=== PATIENT | female | born 1995 | race Caucasian/White ===

== ENCOUNTER 2016-03-16 14:20 | Emergency (ER) | payer BC ==
--- NOTE | 2016-03-16 14:36 | ED Physician Documentation ---
Sore Throat/Dental Pain - HISTORIAN Historian: patient - HPI Chief Complaint: Sore Throat Onset: days ago (2) Associated Symptoms: chills, sore throat. denies: fever Further Comments: yes (Several day hx of ST, nonproductive cough, head congestion. No one else at home ill.) - ROS CONST: no problems CVS/RESP: denies: chest pain, shortness of breath - PAST HX Past History: none Allergies/Adverse Reactions: Allergies Allergy/AdvReac Type Severity Reaction Status Date / Time No Known Drug Allergies Allergy Verified 03/16/16 14:33 Home Medications: Ambulatory Orders Medication Instructions Recorded NK [NK] 03/16/16 - SOCIAL HX Smoking History: less than 1 pack/day Alcohol Use: none Drug Use: none - FAMILY HX Family History: No - VITAL SIGNS Vital Signs: Vital Signs Temp Pulse Resp BP Pulse Ox 118/72 12/18/15 21:49 - REVIEWED ASSESSMENTS Nursing Assessment Reviewed: Yes Vitals Reviewed: Yes ED Results Lab/Radiology - Orders Orders: ED Orders Category Date Time Status Rapid Strep [GRP A STREP SCREEN] Routine Lab 03/16/16 Ordered Sore throat Physical Exam - EXAM General Appearance: alert, mild distress Head/Neck: head nml inspection, trachea midline, cervical lymphadenopathy Mouth/Throat: lips nml, gums nml, voice nml, no air way problems, no thrush, pharyngeal erythema Ear/Nose: nml inspection, TM erythema Respiratory: no resp. distress, breath sounds nml. No: wheezes, rales, rhonchi CVS: reg. rate & rhythm, heart sounds nml. No: murmur Abdomen: soft, no organomegaly Extremities: non-tender Skin: warm/dry, normal color Neuro/Psych: oriented x3, mood/affect nml Discharge Clincal Impression: Pharyngitis Additional Instructions: Drink a lot of fluids, gargle with salt water. If symptoms are not improving in three days to be seen by your primary care provider. Home Medications: Ambulatory Orders NK [NK] 03/16/16 Condition: Stable Disposition: HOME, SELF-CARE Decision to Admit: NO Date of Decison to Admit: 03/16/16 Decision Time: 14:48
[2016-03-16 14:38] VITALS: BP 118/57
== END 2016-03-16 14:57 | disposition home or self-care (01) ==
LOC: ED 14:20
DX: J02.9 Acute pharyngitis, unspecified (principal)
CPT/HCPCS: 87070; 87880; 99282; 99283

== ENCOUNTER 2017-12-11 03:44 | Emergency (ER) | payer BC, OTHER ==
[2017-12-11] MEDS: 0.9 % SODIUM CHLORIDE 1,000 ML IV ONE ×2 (03:58→05:15)
[2017-12-11] MEDS: ONDANSETRON HCL/PF 4 MG/ 2ML VIAL IVP ONE (04:00)
--- NOTE | 2017-12-11 04:02 | ED Physician Documentation ---
General Adult - HISTORIAN Historian: patient - HPI Stated Complaint: nausea and vomiting Chief Complaint: General Adult Additional Information: nausea and vomiting began last evening. Thinks she may be dehydrated. No diarrhea or fever. Says she has not had a bowel movement for 3-4 weeks. Saw her primary, Dr. Espinoza, two weeks ago and he had her take an unknown white pill, but that did not help. No unusual food intake. No other modifying factors or associated signs. - ROS CONST: denies: fever - PAST HX Past History: none Surgeries/Procedures: other (FX arm) Allergies/Adverse Reactions: Allergies Allergy/AdvReac Type Severity Reaction Status Date / Time No Known Drug Allergies Allergy Verified 12/11/17 04:05 Home Medications: Ambulatory Orders Medication Instructions Recorded Azithromycin [Zithromax] 250 mg PO DAILY #6 tablet 12/11/17 Docusate Sodium [Colace] 100 mg PO BID #60 12/11/17 - SOCIAL HX Smoking History: non-smoker - FAMILY HX Family History: Yes (GM and GF of colon cancer) - VITAL SIGNS Vital Signs: Vital Signs Temp Pulse Resp BP Pulse Ox 118/57 03/16/16 14:58 - REVIEWED ASSESSMENTS Nursing Assessment Reviewed: Yes Vitals Reviewed: Yes Progress - Progress Progress: Report Submission Date: Dec 11, 2017 4:40:00 AM CDT Patient Study Name: CLEMENTINA WAYNE Date: Dec 11, 2017 4:07:56 AM CDT Modality Type: DX Gender: F Description: ABDOMEN : 89 Institution: [facility] Physician: ASHKAN MASSEY - ER Abdomen series with single view chest History: Left lower abdominal pain and vomiting Findings: Minimal hazy right infrahilar infiltrate is present. The lungs are hyperinflated. The left lung is clear. Heart size is normal. A moderate to large amount of colorectal stool is present without bowel obstruction or free air. No abnormal calcifications are observed. Impression: 1. Hazy right infrahilar infiltrate. 2. Constipation. Electronically signed on Dec 11, 2017 4:40:00 AM CDT by: Ilan Brown ED Results Lab/Radiology - Orders Orders: ED Orders Category Date Time Status Place IV Lock 1T Care 12/11/17 03:48 Active ABDOMEN WITH PA CHEST [ABD SERIES PA CHEST] [RAD] Stat Exams 12/11/17 Ordered CBC/PLATELET/DIFF Routine Lab 12/11/17 03:57 Received CMP Routine Lab 12/11/17 03:57 Received DRUG SCREEN 8,URINE Stat Lab 12/11/17 Ordered URINALYSIS Routine Lab 12/11/17 Ordered URINE HCG Stat Lab 12/11/17 03:48 Ordered 0.9 % Sodium Chloride [Normal Saline] 1,000 ml Med 12/11/17 03:48 Active IV Q1H Ondansetron HCl/Pf [Zofran 4 mg/2 ml] Med 12/11/17 03:48 Discontinued 4 mg IVP NOW ONE General Adult Physical Exam - PHYSICAL EXAM GENERAL APPEARANCE: thin (anxious) EENT: eye inspection normal, ENT inspection normal, pharynx normal NECK: normal inspection, supple RESPIRATORY: no resp distress, breath sounds normal CVS: reg rate & rhythm, heart sounds normal, no murmur ABDOMEN: soft, no organomegaly, normal bowel sounds, no distension BACK: normal inspection, no CVA tenderness, other (no vertebral tenderness) SKIN: warm/dry, normal color EXTREMITIES: normal range of motion (gait and stance), no evidence of injury NEURO: CN's nml as tested, motor nml, sensation nml Discharge Clincal Impression: Dehydration Pneumonia Qualifiers: Pneumonia type: due to unspecified organism Laterality: right Lung location: lower lobe of lung Qualified Code(s): J18.1 - Lobar pneumonia, unspecified organism Constipation Qualifiers: Constipation type: unspecified constipation type Qualified Code(s): K59.00 - Constipation, unspecified Prescriptions: Azithromycin [Zithromax] 250 mg PO DAILY #6 tablet Docusate Sodium [Colace] 100 mg PO BID #60 Referrals: Primary Doctor,No [Primary Care Provider] - 2 Days Condition: Fair Disposition: 01 HOME, SELF-CARE Decision to Admit: NO Decision Time: 06:00
[2017-12-11 04:32] LABS: eGFR (Non-African) > 60
[2017-12-11 04:33] LABS: BASOPHILS % 0.7 (0.0-1.5); EOSINOPHILS % 2.3 % (0.0-6.8); MEAN CORPUSCULAR HEMOGLOBIN 29.4 pg (28.0-34.0); MONOCYTES % 7.8 % (0.0-11.0)
[2017-12-11 04:34] LABS: NEUTROPHILS # 5.3 # k/uL (1.4-7.7)
[2017-12-11] MEDS: cefTRIAXone SODIUM 1 GM in 0.9 % SODIUM CHLORIDE 100 ML IV ONE (05:16)
[2017-12-11] MEDS: 0.9 % SODIUM CHLORIDE 100 ML IV ONE (05:17)
[2017-12-11] MEDS: cefTRIAXone SODIUM 1 GM VIAL ONE (05:17)
[2017-12-11 06:12] VITALS: BP 117/69
--- NOTE | 2017-12-11 06:23 | Diagnostic Imaging Report ---
ASHKAN MASSEY [facility] [address] [facility] [address] [place] [address]. [id number] Report Submission Date: Dec 11, 2017 4:40:00 AM CDT Patient Study Name: CLEMENTINA WAYNE Date: Dec 11, 2017 4:07:56 AM CDT Modality Type: DX Gender: F Description: ABDOMEN : 89 Institution: [facility] Physician: ASHKAN MASSEY Abdomen series with single view chest History: Left lower abdominal pain and vomiting Findings: Minimal hazy right infrahilar infiltrate is present. The lungs are hyperinflated. The left lung is clear. Heart size is normal. A moderate to large amount of colorectal stool is present without bowel obstruction or free air. No abnormal calcifications are observed. Impression: 1. Hazy right infrahilar infiltrate. 2. Constipation. Electronically signed on Dec 11, 2017 4:40:00 AM CDT by: Ilan CIFUENTES
[2017-12-11 13:12] LABS: CANNABINOIDS NEGATIVE ng/mL (< 50); METHYLENEDIOXYMETHAMPHETAMINE NEGATIVE ng/mL (<500)
[2017-12-11 13:13] LABS: APPEARANCE,URINE CLEAR (CLEAR); COLOR,URINE YELLOW (YELLOW); OCCULT BLOOD,URINE TRACE-INTACT (NEGATIVE); PH URINE 5.5 (5.0 - 8.0); URINE HCG NEGATIVE (NEGATIVE); UROBILINOGEN URINE 0.2 Eu (0.2-1.0)
== END 2017-12-11 06:10 | disposition home or self-care (01) ==
LOC: ED 03:44
DX: E86.0 Dehydration (principal); J18.1 Lobar pneumonia, unspecified organism; K59.00 Constipation, unspecified
CPT/HCPCS: 74022; 80053; 80377; 81002; 81025; 85025; 87040; J0696; J2405; J7030; 96360; 96361; 96365; 96375; 99284; G0481; S1016

== ENCOUNTER 2018-03-21 11:48 | Emergency (ER) | payer OTHER ==
--- NOTE | 2018-03-21 11:57 | ED Physician Documentation ---
General Adult - HISTORIAN Historian: patient - HPI Stated Complaint: sinus pain and pressure - cough Chief Complaint: Allergies Onset: days ago (7) Timing: still present Severity: mild Further Comments: yes (She states last and Friday she had a low grade fever - she is not sure of the measurement. She states she has had increasing sinus pressure and cough (productive) she has tried OTC meds with no relief. She has no sick contacts that she is aware of at this time.) - ROS CONST: fever EYES/ENT: sore throat, nasal congestion CVS/RESP: cough. denies: chest pain, shortness of breath GI/: denies: abdominal pain, problems urinating, vomiting, nausea, diarrhea MS/SKIN/LYMPH: none NEURO/PSYCH: headache - PAST HX Past History: none Other History: none Surgeries/Procedures: none Immunizations: UTD Allergies/Adverse Reactions: Allergies Allergy/AdvReac Type Severity Reaction Status Date / Time No Known Drug Allergies Allergy Verified 03/21/18 12:27 - SOCIAL HX Smoking History: non-smoker Alcohol Use: none Drug Use: none - FAMILY HX Family History: No - VITAL SIGNS Vital Signs: Vital Signs Temp Pulse Resp BP Pulse Ox 117/69 12/11/17 06:10 - REVIEWED ASSESSMENTS Nursing Assessment Reviewed: Yes Vitals Reviewed: Yes General Adult Physical Exam - PHYSICAL EXAM GENERAL APPEARANCE: no distress EENT: no signs of dehydration, pharyngeal erythema, TM erythema, other (sinus pain frontal bilaterally ) NECK: normal inspection RESPIRATORY: no resp distress, chest non-tender, breath sounds normal CVS: reg rate & rhythm, heart sounds normal ABDOMEN: soft, normal bowel sounds, no distension SKIN: warm/dry, normal color EXTREMITIES: non-tender NEURO: oriented X3 Discharge Clincal Impression: Sinusitis Qualifiers: Sinusitis location: frontal Chronicity: acute Recurrence: non-recurrent Qualified Code(s): J01.10 - Acute frontal sinusitis, unspecified Referrals: Demarcus Espinoza DO [Primary Care Provider] - 2 Days Comments: 1. Augmentin 875/125 mg take 1 by mouth BID x 10 days 2. Medrol dose pack - as directed 3. Tessalon Pearls 100 mg take 1 by mouth every 8 hours as needed for cough 4. Continue OTC meds as needed and as directed for symptom relief 5. See PCP in 2-4 days if no improvement 6. Return to ER for any concerns Condition: Stable Disposition: 01 HOME, SELF-CARE Decision to Admit: NO Date of Decison to Admit: 03/21/18 Decision Time: 12:28
[2018-03-21 12:05] VITALS: BP 108/64
== END 2018-03-21 12:30 | disposition home or self-care (01) ==
LOC: ED 11:48
DX: J01.10 Acute frontal sinusitis, unspecified (principal)
CPT/HCPCS: 99281; 99282

== ENCOUNTER 2018-06-24 23:22 | Emergency (ER) | payer OTHER ==
--- NOTE | 2018-06-24 23:27 | ED Physician Documentation ---
Headache - HISTORIAN Historian: patient - HPI Stated Complaint: headache x 2 days (week illness started) Chief Complaint: Headache Onset: days ago (2) Timing: gradual New Gradual Onset: Yes Exposure To: none Severity: moderate Quality: similar to previous (but she hasnt had a migraine this bad in a year ) Associated Symptoms: fever, sensitivity to light, nausea. denies: problems with vision, vomiting, speech problems, numbness, dizziness Preceding Symptoms: other (none ) Exacerbated By: light, noise, movement, position Further Comments: yes (She reports "started feeling bad" about one week ago she states she then 2 days ago started to have increased headache symtpoms behind both eyes and a fever this evening of 100.5 - she last took OTC meds at 1300 and had no relief. She has nausea. No vomiting. She denies any injury to her head. She states She has had migraines in the past although she recalls the last one "this bad was a year ago" . She has no rash. NO other complaints.) Last known Well Code/Unknown Code: Unknown - ROS NEURO/PSYCH: denies: confusion, anxiety, depression, fainting EYES/ENT: denies: sore throat, difficulty swallowing, sinus pain, drainage CVS/RESP: none GI/: denies: abdominal pain, diarrhea, problems urinating MS/SKIN/LYMPH: denies: muscle aches, back pain, rash, skin lesions, swollen glands - PAST HX Medical History: migraines Immunizations: UTD Allergies/Adverse Reactions: Allergies Allergy/AdvReac Type Severity Reaction Status Date / Time No Known Drug Allergies Allergy Verified 06/24/18 23:37 Home Medications: Ambulatory Orders Medication Instructions Recorded NK 06/24/18 - SOCIAL HX Smoking History: non-smoker Alcohol Use: none Drug Use: none - Family HX Family History: none - VITAL SIGNS Vital Signs: Vital Signs Temp Pulse Resp BP Pulse Ox 100.2 F H 67 14 125/84 99 06/24/18 23:22 06/24/18 23:22 06/24/18 23:22 06/24/18 23:22 06/24/18 23:22 - REVIEWED ASSESSMENTS Nursing Assessment Reviewed: Yes Vitals Reviewed: Yes Progress - Progress Progress: 0041: Pt on her cell phone - discussed results she states she has some improvement - discussed plan she is agreeable DG ED Results Lab/Radiology - Lab Results Lab Results: Lab Results 06/24/18 06/24/18 23:50 23:50 WBC 4.90 K/ul K/ul (4.00-12.00) RBC 5.01 M/ul M/ul (3.90-5.20) Hgb 14.8 g/dL g/dL (11.5-16.0) Hct 43.4 % % (34.5-46.5) MCV 86.0 fl fl (80.0-100.0) MCH 29.5 pg pg (28.0-34.0) MCHC 34.1 g/dL g/dL (30.0-36.0) RDW 12.5 % % (11.3-14.3) Plt Count 183 K/mm3 K/mm3 (130-400) Neut % (Auto) 42.8 % % (39.0-79.0) Lymph % (Auto) 35.5 % % (16.0-50.0) [place] % (Auto) 17.4 % H % (0.0-11.0) Eos % (Auto) 2.6 % % (0.0-6.8) Baso % (Auto) 1.7 % H % (0.0-1.5) Neut # (Auto) 2.1 # k/uL # k/uL (1.4-7.7) Lymph # (Auto) 1.7 # k/uL # k/uL (0.6-4.0) Erath # (Auto) 0.9 # k/uL # k/uL (0.0-0.9) Eos # (Auto) 0.1 # k/uL # k/uL (0.0-0.6) Baso # (Auto) 0.1 # k/uL # k/uL (0.0-0.5) Sodium 137 mmol/L mmol/L (137-145) Potassium 3.6 mmol/L mmol/L (3.5-5.1) Chloride 103 mmol/L mmol/L (98-107) Carbon Dioxide 27 mmol/L mmol/L (22-30) BUN 8 mg/dL mg/dL (7-17) Creatinine 0.62 mg/dL mg/dL (0.52-1.04) Estimated Creat Clear 135 Est GFR ( Amer) > 60 (60 - ) Est GFR (Non-Af Amer) > 60 (60 - ) Glucose 90 mg/dL mg/dL (74-106) Calcium 9.6 mg/dL mg/dL (8.4-10.2) Total Bilirubin 0.6 mg/dL mg/dL (0.2-1.3) AST 31 U/L U/L (15-46) ALT 19 U/L U/L (0-35) Alkaline Phosphatase 69 U/L U/L (38-126) Total Protein 7.8 g/dL g/dL (6.3-8.2) Albumin 4.3 g/dL g/dL (3.5-5.0) - Radiology Radiology Impressions: CT brain noncontrast CLINICAL HISTORY: frontal TAYLOR x3 days, no known trauma (Hx) / ITS.REASON HEadache TECHNIQUE: 5 mm contiguous axial images of the brain, noncontrast. FINDINGS: There is no evidence of intracranial mass effect, hemorrhage, or acute hydrocephalus. The lateral ventricles are symmetrical and the 4th ventricle is midline without shift. No acute brain parenchymal changes or extra-axial fluid collections are identified. The posterior fossa contents are within normal limits. The calvarium is intact. The visualized sinuses and mastoid air cells are clear. IMPRESSION: No acute intracranial process. Electronically signed on June 25, 2018 12:15:02 AM CDT by: Roger Williamson - Orders Orders: ED Orders Category Date Time Status IV Started NOW Care 06/24/18 23:[address] BRAIN W/O CONTRAST Stat Exams 06/24/18 Completed CBC/PLATELET/DIFF Stat Lab 06/24/18 23:50 Completed CMP Stat Lab 06/24/18 23:50 Completed UA W/MICRO IF INDICATED Routine Lab 06/24/18 23:34 Ordered URINE HCG Stat Lab 06/24/18 Ordered 0.9 % Sodium Chloride [Normal Saline] 1,000 ml Med 06/24/18 23:50 Active IV NOW Dexamethasone Sodium Phosphate [Decadron] Med 06/25/18 00:37 Once 2 mg IV NOW ONE Ketorolac Tromethamine [Toradol] Med 06/24/18 23:51 Discontinued 30 mg IV NOW ONE Ondansetron HCl/Pf [Zofran] Med 06/25/18 00:12 Discontinued 4 mg IVP NOW ONE Headache Physical Exam - EXAM General Appearance: alert, mild distress EENT: no facial swelling, eyes nml inspection, PERRL, pain over sinuses Neck: normal inspection Respiratory: no resp distress, chest non-tender, breath sounds normal CVS: reg. rate & rhythm, heart sounds nml Abdomen: non-tender Skin: color nml, no rash Extremitites: non-tender, normal range of motion, no evidence of injury, no chrissy a - NEURO/PSYCH Higher Functions: alert, oriented x3, nml speech, mood/affect nml Cranial: nml as tested Cerebellar: nml as tested Sensorimotor: motor nml Discharge Clincal Impression: Migraine Qualifiers: Migraine type: unspecified Status migrainosus presence: without status migrainosus Intractability: not intractable Qualified Code(s): G43.909 - Migraine, unspecified, not intractable, without status migrainosus Referrals: Primary Doctor,No [Primary Care Provider] - 2 Days Comments: 1. Tramadol 50 mg take 1 by mouth every 8 hours as needed for headache 2. Zofran 4 mg take 1 by mouth every 8 hours as needed for nausea 3. Increase fluids 4. See PCP in 2-4 days and discuss migraine options 5. Return to ER for any increasing symptoms Condition: Stable Disposition: 01 HOME, SELF-CARE Decision to Admit: NO Date of Decison to Admit: 06/25/18 Decision Time: 00:45
[2018-06-25] MEDS: 0.9 % SODIUM CHLORIDE 1,000 ML IV ONE (00:05)
[2018-06-25] MEDS: KETOROLAC TROMETHAMINE 30 MG/1ML VIAL IV ONE (00:10)
[2018-06-25 00:13] LABS: BASOPHILS % 1.7 % (0.0-1.5); EOSINOPHILS % 2.6 % (0.0-6.8); MEAN CORPUSCULAR HEMOGLOBIN 29.5 pg (28.0-34.0); MONOCYTES % 17.4 % (0.0-11.0); NEUTROPHILS # 2.1 # k/uL (1.4-7.7)
[2018-06-25] MEDS: ONDANSETRON HCL/PF 4 MG/ 2ML VIAL IVP ONE (00:15)
[2018-06-25 00:18] LABS: eGFR (Non-African) > 60
--- NOTE | 2018-06-25 00:21 | Diagnostic Imaging Report ---
BRIDGET RICHMOND [facility] [address] Count In[facility] [address] [place], [place]. [address] Report Submission Date: June 25, 2018 12:15:02 AM CDT Patient Study Name: CLEMENTINA WAYNE Date: June 24, 2018 11:56:35 PM CDT Modality Type: CT\SR Gender: F Description: CT BRAIN W/O CONTRAST : 89 Institution: [facility] Physician: BRIDGET RICHMOND CT brain noncontrast CLINICAL HISTORY: frontal TAYLOR x3 days, no known trauma (Hx) / ITS.REASON HEadache TECHNIQUE: 5 mm contiguous axial images of the brain, noncontrast. FINDINGS: There is no evidence of intracranial mass effect, hemorrhage, or acute hydrocephalus. The lateral ventricles are symmetrical and the 4th ventricle is midline without shift. No acute brain parenchymal changes or extra-axial fluid collections are identified. The posterior fossa contents are within normal limits. The calvarium is intact. The visualized sinuses and mastoid air cells are clear. IMPRESSION: No acute intracranial process. Electronically signed on June 25, 2018 12:15:02 AM CDT by: Roger CIFUENTES
[2018-06-25] MEDS: DEXAMETHASONE SOD PHOS 4 MG/ML VIAL IV ONE (00:46)
[2018-06-25 01:30] VITALS: BP 128/64
[2018-06-25 06:22] LABS: OCCULT BLOOD,URINE TRACE-INTACT (NEGATIVE); PH URINE 6.5 (5.0 - 8.0)
== END 2018-06-25 01:05 | disposition home or self-care (01) ==
LOC: ED 23:22
DX: G43.909 Migraine, unspecified, not intractable, without status migrainosus (principal)
CPT/HCPCS: 36415; 70450; 80053; 81002; 81025; 85025; 96361; 96374; 96375; 99283; 99284; J1100; J1885; J2405; J7030; S1016

== ENCOUNTER 2018-09-28 23:52 | Emergency (ER) | payer OTHER ==
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
[2018-09-29 01:38] VITALS: BP 117/72
== END 2018-09-29 00:30 | disposition home or self-care (01) ==
LOC: ED 23:52
DX: F41.9 Anxiety disorder, unspecified (principal)
CPT/HCPCS: 99281; 99282

== ENCOUNTER 2019-01-12 17:25 | Emergency (ER) | payer OTHER ==
[2019-01-12] MEDS ORDERED: ONDANSETRON HCL/PF 4 MG/ 2ML VIAL IVP ONE (17:54)
[2019-01-12] MEDS ORDERED: 0.9 % SODIUM CHLORIDE 1,000 ML IV ONE (17:54)
--- NOTE | 2019-01-12 17:59 | ED Physician Documentation ---
Nausea/Vomiting/Diarrhea - HISTORIAN Historian: patient - HPI Stated Complaint: abd pain Chief Complaint: Nausea,Vomiting,Diarrhea Additional Information: 23 year old female presents with c/o n/v/d. She returned from vacation in [facility] on the , she had been there since the and started feeling ill after eating some shrimp; states that 4 other people that went also got sick but are better now. She still has nausea and epigastric discomfort. She last vomited on the and last episode of diarrhea was 5 days ago. She states that she ate some pizza today and the nausea and epigastric pain worsened (discussed a bland diet). She states last menses was last month- she is on BCP and is getting ready to start. Onset: days ago Duration: waxing, waning Timing: gradual onset Context: bad food (shrimp while in [place]) Severity: moderate - Associated Symptoms Vomiting: other (stopped on the ) Diarrhea: other (stopped 5 days ago) Abdominal Pain: epigastric - ROS CONST: recent illness CVS/RESP: denies: chest pain, shortness of breath GI/: none EYES/ENT: none MS/SKIN/LYMPH: denies: rash, swollen glands NEURO/PSYCH: none - PAST HX Past History: none Surgeries/Procedures: other (left arm) Immunizations: UTD Allergies/Adverse Reactions: Allergies Allergy/AdvReac Type Severity Reaction Status Date / Time No Known Drug Allergies Allergy Verified 01/12/19 17:52 Home Medications: Ambulatory Orders Medication Instructions Recorded Norgestimate-Ethinyl Estradiol 1 tab PO DAILY 09/29/18 [Sprintec 28 Day Tablet] Ondansetron HCl Rapdis [Zofran Odt] 4 mg PO Q6H PRN #10 tab 01/12/19 metroNIDAZOLE [Flagyl] 500 mg PO Q6H #28 tablet 01/12/19 - SOCIAL HX Smoking History: non-smoker, other (quit 1 month ago) Alcohol Use: none Drug Use: none - FAMILY HX Family History: none - VITAL SIGNS Vital Signs: Vital Signs Temp Pulse Resp BP Pulse Ox 98.5 F 55 L 16 103/61 99 01/12/19 17:35 01/12/19 18:47 01/12/19 18:47 01/12/19 18:47 01/12/19 18:47 - REVIEWED ASSESSMENTS Nursing Assessment Reviewed: Yes Vitals Reviewed: Yes Progress - Progress Progress: 18:40 patient feeling better after IV fluids; discussed foods high in potassium or an OTC potassium supplement for couple of days; discussed following a BRAT diet until nausea subsides; drink > 64oz of water daily; follow up with PCP next week ED Results Lab/Radiology - Lab Results Lab Results: Lab Results 01/12/19 01/12/19 01/12/19 18:13 18:13 18:13 WBC 11.20 K/ul K/ul (4.00-12.00) RBC 4.39 M/ul M/ul (3.90-5.20) Hgb 13.5 g/dL g/dL (11.5-16.0) Hct 38.8 % % (34.5-46.5) MCV 88.0 fl fl (80.0-100.0) MCH 30.6 pg pg (28.0-34.0) MCHC 34.7 g/dL g/dL (30.0-36.0) RDW 10.8 % L % (11.3-14.3) Plt Count 228 K/mm3 K/mm3 (130-400) Neut % (Auto) 39.0 % % (39.0-79.0) Lymph % (Auto) 22.0 % % (16.0-50.0) [place] % (Auto) 5.5 % % (0.0-11.0) Eos % (Auto) 33.0 % H % (0.0-6.8) Baso % (Auto) 0.5 % % (0.0-1.5) Neut # (Auto) 4.4 # k/uL # k/uL (1.4-7.7) Lymph # (Auto) 2.5 # k/uL # k/uL (0.6-4.0) [place] # (Auto) 0.6 # k/uL # k/uL (0.0-0.9) Eos # (Auto) 3.7 # k/uL H # k/uL (0.0-0.6) Baso # (Auto) 0.1 # k/uL # k/uL (0.0-0.5) Sodium 141 mmol/L mmol/L (137-145) Potassium 3.4 mmol/L L mmol/L (3.5-5.1) Chloride 105 mmol/L mmol/L (98-107) Carbon Dioxide 26 mmol/L mmol/L (22-30) Anion Gap 13.4 BUN 15 mg/dL mg/dL (7-17) Creatinine 0.44 mg/dL L mg/dL (0.52-1.04) Estimated Creat Clear 180 Est GFR ( Amer) > 60 (60 - ) Est GFR (Non-Af Amer) > 60 (60 - ) Glucose 94 mg/dL mg/dL (74-106) Calcium 9.4 mg/dL mg/dL (8.4-10.2) Total Bilirubin 0.5 mg/dL mg/dL (0.2-1.3) AST 25 U/L U/L (15-46) ALT 13 U/L U/L (0-35) Alkaline Phosphatase 43 U/L U/L (38-126) Total Protein 7.5 g/dL g/dL (6.3-8.2) Albumin 4.2 g/dL g/dL (3.5-5.0) Lipase 158 U/L U/L (23-300) - Orders Orders: ED Orders Category Date Time Status Place IV Lock 1T Care 01/12/19 17:54 Active CBC/PLATELET/DIFF Routine Lab 01/12/19 18:13 Completed CMP Routine Lab 01/12/19 18:13 Completed LIPASE Stat Lab 01/12/19 18:13 Completed URINALYSIS Routine Lab 01/12/19 Ordered 0.9 % Sodium Chloride [Normal Saline] 1,000 ml Med 01/12/19 17:54 Discontinued IV Q1H Ondansetron HCl/Pf [Zofran] Med 01/12/19 17:54 Discontinued 4 mg IVP NOW ONE Nausea Physical Exam - EXAM General Appearance: alert, mild distress EENT: eye inspection normal, ENT inspection normal, pharynx normal, no signs of dehydration, [place] Neck: normal inspection, supple Respiratory: breath sounds normal CVS: heart sounds normal, equal pulses Abdomen: tenderness (epigastric) Skin: warm/dry, normal color Extremities: normal range of motion Neuro/Psych: oriented X3, CN's nml as tested, motor nml, sensation nml, mood/aff ect nml, cognition normal Discharge Clincal Impression: Gastritis, Nausea Prescriptions: metroNIDAZOLE [Flagyl] 500 mg PO Q6H #28 tablet Ondansetron HCl Rapdis [Zofran Odt] 4 mg PO Q6H PRN #10 tab PRN Reason: Nausea / Vomiting Referrals: Primary Doctor,No [Primary Care Provider] - 2 Days Additional Instructions: Take Metronidazole 500mg by mouth every 6 hours for 7 days Zofran 4 mg by mouth every 6 hours as needed for nausea [place] diet > 64 oz of water daily Follow up with PCP next week Condition: Good Disposition: 01 HOME, SELF-CARE Decision to Admit: NO Decision Time: 18:40
[2019-01-12 18:15] LABS: BASOPHILS % 0.5 % (0.0-1.5); NEUTROPHILS # 4.4 # k/uL (1.4-7.7)
[2019-01-12 18:28] LABS: eGFR (Non-African) > 60
[2019-01-12 18:49] VITALS: BP 103/61
== END 2019-01-12 18:46 | disposition home or self-care (01) ==
LOC: ED 17:25
DX: K29.70 Gastritis, unspecified, without bleeding (principal)
CPT/HCPCS: 80053; 83690; 85025; 96361; 96374; 99284; J2405; J7030; S1016